=== PATIENT | male | born 1945 | race Caucasian/White ===

== ENCOUNTER 2016-05-05 09:30 | Outpatient (CLI) | payer MEDICARE | END 2016-05-05 09:31 | disposition home or self-care (01) | DX: I48.2 Chronic atrial fibrillation (principal); Z95.2 Presence of prosthetic heart valve ==

== ENCOUNTER 2016-06-01 09:11 | Outpatient (CLI) | payer MEDICARE | END 2016-06-01 09:12 | disposition home or self-care (01) | DX: I48.2 Chronic atrial fibrillation (principal); Z95.2 Presence of prosthetic heart valve ==

== ENCOUNTER 2016-06-10 09:30 | Outpatient (CLI) | payer MEDICARE | END 2016-06-10 09:31 | disposition home or self-care (01) | DX: I48.2 Chronic atrial fibrillation (principal); Z95.2 Presence of prosthetic heart valve ==

== ENCOUNTER 2016-07-02 13:55 | Outpatient (CLI) | payer MEDICARE | END 2016-07-02 13:56 | disposition home or self-care (01) | DX: I48.2 Chronic atrial fibrillation (principal); Z95.2 Presence of prosthetic heart valve ==

== ENCOUNTER 2016-08-03 09:00 | Outpatient (CLI) | payer MEDICARE | END 2016-08-03 09:01 | disposition home or self-care (01) | DX: I48.2 Chronic atrial fibrillation (principal); Z95.2 Presence of prosthetic heart valve ==

== ENCOUNTER 2016-08-31 09:10 | Outpatient (CLI) | payer MEDICARE | END 2016-08-31 09:11 | disposition home or self-care (01) | DX: I48.2 Chronic atrial fibrillation (principal); Z95.2 Presence of prosthetic heart valve ==

== ENCOUNTER 2016-09-08 08:36 | Outpatient (CLI) | payer MEDICARE | END 2016-09-08 08:37 | disposition home or self-care (01) | DX: I48.2 Chronic atrial fibrillation (principal); Z95.2 Presence of prosthetic heart valve ==

== ENCOUNTER 2016-09-22 08:54 | Outpatient (CLI) | payer MEDICARE | END 2016-09-22 08:55 | disposition home or self-care (01) | LOC: LAB.F 08:54 | PROVIDERS: ATTEND Family Medicine | DX: I48.2 Chronic atrial fibrillation (principal); Z95.2 Presence of prosthetic heart valve | CPT/HCPCS: 85610 ==

== ENCOUNTER 2016-09-29 08:38 | Outpatient (CLI) | payer MEDICARE | END 2016-09-29 08:39 | disposition home or self-care (01) | LOC: LAB.F 08:38 | PROVIDERS: ATTEND Family Medicine | DX: I48.2 Chronic atrial fibrillation (principal); Z95.2 Presence of prosthetic heart valve | CPT/HCPCS: 85610 ==

== ENCOUNTER 2016-10-12 08:31 | Outpatient (CLI) | payer MEDICARE | END 2016-10-12 08:32 | disposition home or self-care (01) | LOC: LAB.F 08:31 | PROVIDERS: ATTEND Family Medicine | DX: I48.2 Chronic atrial fibrillation (principal); Z95.2 Presence of prosthetic heart valve | CPT/HCPCS: 85610 ==

== ENCOUNTER 2016-10-26 09:00 | Outpatient (CLI) | payer MEDICARE | END 2016-10-26 09:01 | disposition home or self-care (01) | LOC: LAB.F 09:00 | PROVIDERS: ATTEND Family Medicine | DX: I48.2 Chronic atrial fibrillation (principal); Z95.2 Presence of prosthetic heart valve | CPT/HCPCS: 85610 ==

== ENCOUNTER 2016-11-04 08:56 | Outpatient (CLI) | payer MEDICARE | END 2016-11-04 08:57 | disposition home or self-care (01) | LOC: LAB.F 08:56 | PROVIDERS: ATTEND Family Medicine | DX: I48.2 Chronic atrial fibrillation (principal); Z95.2 Presence of prosthetic heart valve | CPT/HCPCS: 85610 ==

== ENCOUNTER 2016-11-16 09:01 | Outpatient (CLI) | payer MEDICARE | END 2016-11-16 09:02 | disposition home or self-care (01) | LOC: LAB.F 09:01 | PROVIDERS: ATTEND Family Medicine | DX: I48.2 Chronic atrial fibrillation (principal); Z95.2 Presence of prosthetic heart valve | CPT/HCPCS: 85610 ==

== ENCOUNTER 2016-11-18 18:18 | Inpatient (IN) | payer MEDICARE ==
--- NOTE | 2016-11-18 19:00 | ED Physician Documentation ---
PD HPI CHEST PAIN - Stated complaint Stated Complaint: CHEST PX - Chief complaint Chief Complaint: Cardiac - History obtained from History obtained from: Patient - History of Present Illness Timing - onset: Other (71-year-old gentleman with history of atrial fibrillation , anticoagulated, and history of mitral valve repair presents with 2 issues, he notes that A little over a month ago his metoprolol was increased because at an office visit his heart rate was about 110. He went from 100 mg twice daily to 150 mg twice daily. Over the last few days he has noted that his heart rate has been low on his home monitor, as low as 40 but not lower. He has been fatigued with it. He also has had episodic epigastric pain that is nonradiating. This is been going on for the last few days. It happens intermittently, it is nonexertional and does not seem to be related to eating. When he has it he is mildly short of breath but denies nausea or sweats.) Review of Systems Ten Systems: 10 systems reviewed and negative Constitutional: reports: Sweats. denies: Fever, Chills Nose: denies: Rhinorrhea / runny nose, Congestion Cardiac: denies: Chest pain / pressure, Palpitations, Pedal edema, Calf pain Respiratory: denies: Hemoptysis, Wheezing PD PAST MEDICAL HISTORY - Past Medical History Cardiovascular: Hypertension, Atrial fibrillation, Valve disorder - Past Surgical History Past Surgical History: Yes Cardiovascular: Valve replacement - Present Medications Home Medications: Ambulatory Orders Medication Instructions Recorded Confirmed Atenolol 100 mg PO BID 03/06/13 05/13/14 Lisinopril 10 mg PO DAILY 03/06/13 05/13/14 diltiaZEM CD [Cardizem Cd] 180 mg PO BID 03/06/13 05/13/14 Warfarin [Coumadin] 5 mg PO DAILY 05/13/14 05/13/14 - Allergies Allergies/Adverse Reactions: Allergies Allergy/AdvReac Type Severity Reaction Status Date / Time No Known Drug Allergies Allergy Verified 03/06/13 11:13 - Social History Does the pt smoke?: No Smoking Status: Never smoker Does the pt drink ETOH?: No Does the pt have substance abuse?: No - Immunizations Immunizations are current?: Yes - POLST Patient has POLST: Yes PD ED PE NORMAL - Vitals Vital signs reviewed: Yes - General General: Alert and oriented X 3, No acute distress - HEENT HEENT: PERRL, EOMI, Pharynx benign - Neck Neck: Supple, no meningeal sign, No bony TTP - Cardiac Cardiac: No murmur, Other (Bradycardic) - Respiratory Respiratory: No respiratory distress, Clear bilaterally - Abdomen Abdomen: Normal bowel sounds, Soft, Other (Very mild epigastric and right upper quadrant tenderness) - Derm Derm: Normal color, Warm and dry - Extremities Extremities: No edema, No calf tenderness / cord - Neuro Neuro: Alert and oriented X 3, Normal speech - Psych Psych: Normal mood, Normal affect Results - Vitals Vitals: Vital Signs - 24 hr 11/18/16 11/18/16 11/18/16 18:27 19:24 20:02 Temperature 36.0 C L Heart Rate 44 L 43 L 44 L Respiratory 16 18 18 Rate Blood Pressure 156/96 H 132/86 H 110/88 H O2 Saturation 95 93 97 11/18/16 11/18/16 11/18/16 20:30 21:59 23:31 Temperature Heart Rate 44 L 47 L 45 L Respiratory 20 17 17 Rate Blood Pressure 127/63 169/88 H 155/89 H O2 Saturation 94 93 93 Oxygen O2 Source Room air - EKG (time done) 1840 Rhythm: Sinus bradycardia [place]: Normal Intervals: Normal SD QRS: LVH Ischemia: No: ST elevation c/w ischemia Computer interpretation: Agree with computer - Labs Labs: Laboratory Tests 11/18/16 11/18/16 11/18/16 19:04 19:04 19:04 WBC 5.8 RBC 4.61 L Hgb 14.8 Hct 43.6 MCV 94.7 H MCH 32.0 H MCHC 33.8 RDW 13.7 Plt Count 101 L MPV 10.6 Neut # 3.3 Lymph # 1.7 Sampson # 0.7 Eos # 0.1 Baso # 0.0 Absolute Nucleated RBC 0.00 Nucleated RBCs 0.1 Manual Slide Review Indicated WBC Morphology 1+ REACTIVE LYMPHS Platelet Estimate DECREASED (<130,000) Platelet Morphology 1+ LARGE PLATELETS RBC Morph Micro Appear NORMAL APPEARANCE PT INR Sodium 140 Potassium 4.4 Chloride 106 Carbon Dioxide 28 Anion Gap 6.0 BUN 19 Creatinine 0.8 Estimated GFR (MDRD) 95 Glucose 98 Calcium 8.9 Magnesium 2.0 Total Bilirubin 1.1 H AST 28 ALT 31 Alkaline Phosphatase 56 Troponin I < 0.04 Total Protein 6.9 Albumin 4.0 Globulin 2.9 Albumin/Globulin Ratio 1.4 Lipase 21 L 11/18/16 21:15 WBC RBC Hgb Hct MCV MCH MCHC RDW Plt Count MPV Neut # Lymph # Sampson # Eos # Baso # Absolute Nucleated RBC Nucleated RBCs Manual Slide Review WBC Morphology Platelet Estimate Platelet Morphology RBC Morph Micro Appear PT 29.1 H INR 2.6 H Sodium Potassium Chloride Carbon Dioxide Anion Gap BUN Creatinine Estimated GFR (MDRD) Glucose Calcium Magnesium Total Bilirubin AST ALT Alkaline Phosphatase Troponin I Total Protein Albumin Globulin Albumin/Globulin Ratio Lipase - Rads (name of study) RUQ sono Radiology: Prelim report reviewed (Thickened gallbladder wall measuring 4-5 mm with edema and pericholecystic fluid, no gallstones are seen, mild perihepatic ascites.) PD MEDICAL DECISION MAKING - ED course ED course: 71-year-old gentleman with multiple medical problems including A. fib on warfarin presents with 2 chief complaints, one is bradycardia likely due to recent increase in metoprolol dosing. His heart rates were around 45. He also has some epigastric pain and mild right upper quadrant tenderness, ultrasound as shown. Spoke with Dr. Pandya, the on-call surgeon here who would be ok taking him to surgery but given the complexity of the case the pt preferred xfer to [facility] where his picture booker (Marcos) is. However after further disucssion, pt wanted to stay here. Dr Pandya was updated and Dr Lilly consulted for admit. Departure - Departure Disposition: [facility] DC/Xfer Clinical Impression: Anticoagulant long-term use, Cholecystitis, Bradycardia Chest pain Qualifiers: Chest pain type: unspecified Qualified Code(s): R07.9 - Chest pain, unspecified Condition: Stable
[2016-11-18 19:20] LABS: BASOPHILS % (AUTO) 0.7 %; EOSINOPHILS # (AUTO) 0.1 10^3/uL (0.0-0.7); EOSINOPHILS % (AUTO) 2.2 %; HCT - HEMATOCRIT 43.6 % (42.0-52.0); HGB - HEMOGLOBIN 14.8 g/dL (14.0-18.0); LYMPHOCYTES # (AUTO) 1.7 10^3/uL (1.5-3.5); LYMPHOCYTES % (AUTO) 29.2 %; MEAN CORPUSCULAR HGB CONC 33.8 g/dL (32.0-36.0); MEAN CORPUSCULAR VOLUME 94.7 fL (80.0-94.0); MEAN PLATELET VOLUME 10.6 fL (7.4-11.4); MONOCYTES # (AUTO) 0.7 10^3/uL (0.0-1.0); MONOCYTES % (AUTO) 11.5 %; NEUTROPHILS # (AUTO) 3.3 10^3/uL (1.5-6.6); NEUTROPHILS % (AUTO) 56.4 %; NUCLEATED RED BLOOD CELLS AUTO 0.1 /100WBC; RED BLOOD COUNT 4.61 10^6/uL (4.70-6.10); RED CELL DISTRIBUTION WIDTH 13.7 % (12.0-15.0); UNCORRECTED WHITE BLOOD COUNT 5.8 x10^3/uL; WHITE BLOOD COUNT 5.8 x10^3/uL (4.8-10.8)
[2016-11-18 19:23] LABS: ALBUMIN/GLOBULIN RATIO 1.4 (1.0-2.2); BILIRUBIN,TOTAL 1.1 mg/dL (0.2-1.0); CALCIUM 8.9 mg/dL (8.5-10.3); CREATININE 0.8 mg/dL (0.6-1.2); POTASSIUM 4.4 mmol/L (3.5-5.0); TOTAL PROTEIN 6.9 g/dL (6.7-8.2)
[2016-11-18 19:55] LABS: PLATELET ESTIMATE, MANUAL DECREASED (<130,000) (NORMAL); WBC MORPHOLOGY (MULTIPLE) 1+ REACTIVE LYMPHS (NORMAL)
--- NOTE | 2016-11-18 21:01 | Ultrasound Report ---
EXAM: ABDOMEN ULTRASOUND LIMITED, RUQ EXAM DATE: 11/18/2016 08:22 PM. CLINICAL HISTORY: Epigastric pain, evaluate right upper quadrant. COMPARISON: None. TECHNIQUE: Real-time scanning was performed with static images obtained. FINDINGS: Liver: Normal in size and echotexture. Length 15.7 cm. Main portal vein flow: Hepatopetal. Mild perih epatic free fluid. Gallbladder: Thickened gallbladder wall measuring 4-5 mm. Anterior gallbladder wall appears thickened and edematous. Pericholecystic fluid. Complex pericholecystic fluid is possible. No gallstones are s een. Negative sonographic Anne's sign. Suboptimal visualization due to overlying bowel at the neck region Biliary System: Common duct measures 3 mm. No intrahepatic or extrahepatic ductal dilatation. Other: Right kidney measures 10.5 cm. No hydronephrosis. Visualized portions of the pancreas appear unremarkable. IMPRESSION: 1. Thickened gallbladder wall measuring 4-5 mm. Anterior gallbladder wall appears thickened and edema tous. Pericholecystic fluid. Complex pericholecystic fluid is possible. Acute acalculous cholecystiti s is possible in the appropriate clinical setting. No gallstones are seen. Negative sonographic Sb y's sign. Gallbladder wall thickening can also be seen with liver disease or fluid overload. 2. Mild perihepatic ascites. [facility] Referring Provider Line: [phone] SITE ID: [id number]
[2016-11-18] MEDS ORDERED: AMPICILLIN/SULBACTAM 3 GM in SODIUM CHLORIDE 0.9% MINIBAG 100 ML IV STA (21:23)
[2016-11-18 21:46] LABS: INR 2.6 (0.8-1.2); PT - PROTHROMBIN TIME 29.1 secs (9.9-12.6)
[2016-11-18] MEDS ORDERED: ONDANSETRON 4 MG/2 ML VIAL IVP PRN (22:40)
[2016-11-18] MEDS ORDERED: SODIUM CHLORIDE FLUSH 0.9% 10 ML SYRINGE IVP PRN (22:40)
[2016-11-18] MEDS ORDERED: MORPHINE 2 MG/ML SYRINGE IVP PRN (22:40)
[2016-11-18] MEDS ORDERED: PROCHLORPERAZINE 10 MG/2 ML VIAL IVP PRN (22:40)
[2016-11-18] MEDS ORDERED: oxyCODONE 5 MG TABLET PO PRN (22:40)
[2016-11-18] MEDS ORDERED: ACETAMINOPHEN 325 MG TABLET PO PRN (22:40)
[2016-11-18] MEDS ORDERED: PIPERACILLIN/TAZOBACTAM 3.375 GM in SODIUM CHLORIDE 0.9% MINIBAG 100 ML IV SCH (23:00)
[2016-11-18] MEDS ORDERED: SODIUM CHLORIDE 0.9% 1,000 ML IV SCH (23:00)
[2016-11-19] MEDS ORDERED: PHYTONADIONE INJ (ADULT) 10 MG in SODIUM CHLORIDE 0.9% 50 ML IV ONE (00:34)
--- NOTE | 2016-11-19 01:20 | HISTORY & PHYSICAL EXAMINATION ---
Chief Complaint - Chief Complaint Chief Complaint: abdominal pain History of Present Illness - Admitted From Admitted From:: emergency department - History Obtained From Records Reviewed: yes History obtained from: patient Exam Limitations: none - History of Present Illness HPI Comment/Other: Patient is a 71-year-old gentleman with a past medical history significant for atrial flutter on Coumadin status post ablation, hypertension, aortic valve repair in 2003 and osteoarthritis who presented to the emergency department with a chief complaint of abdominal pain. He states he double pain started 2 days ago and has been intermittent. The patient states that the pain is located in the epigastric region it is not associated with any nausea or vomiting. The patient denies having had any fevers or diarrhea. The patient states that it is nonradiating and resolves without any intervention. The patient does not believe is related to meals. The patient states that he has never had this type of pain before. He states he was concerned that this may be chest pain and that he may have been having heart attack. The patient also states that he has been feeling weak and tired over the last few days. He states he was checking his blood pressure and pulse the last 2 days and noticed that his pulse is been low but his blood pressures been normal. He states that today his pulse was only 40. The patient states that he saw his pulp drier in August and at that time his heart rate was 110 therefore his pulp drier adjusted his metoprolol dose from 50-100 twice a day. The patient states that he saw his pulp drier again just 2 days ago and at that time he underwent an echocardiogram for which he did not receive the results yet. The patient denies any shortness of air, orthopnea, PND , increased lower extremity swelling, and he denies any chest pain. The patient also denies any headache, blurred vision, runny nose, sore throat, cough, fevers , chills, joint pains, muscle aches, recent unintentional weight loss or focal neurologic deficits. On presentation to the emergency department the patient was afebrile, bradycardic with heart rate in the 40s slightly hypertensive but otherwise he was not in any respiratory distress. The patient's lab work revealed a INR of 2.6, platelet count of 101, and a bilirubin of 1.1. Otherwise remainder of the patient's lab work was within normal limits including a negative troponin and a normal CBC. The patient remained afebrile in the emergency department. The patient's EKG showed sinus bradycardia. The patient underwent an abdominal ultrasound which showed thickened gallbladder wall measuring 4-5 mm. Anterior gallbladder wall appeared thickened and edematous. Pericholecystic fluid was present. Complex pericholecystic fluid with possible. Acute acalculous cholecystitis appeared probable in the correct clinical setting. There was no gallstone seen. There was also mild perihepatic ascites. The emergency room physician spoke with the surgeon on-call Dr. Pandya who recommended that the patient be admitted to the medical service with IV antibiotics. He also asked that we reversed the patient's INR and have him ready for surgery to remove his gallbladder on 11/20/2016. Review of Systems - Other Findings Other Findings: A comprehensive review of systems was performed the pertinent positives and negatives are stated above in the HPI and the remainder of the review of systems is negative. History - Past Medical History Cardiovascular: reports: Hypertension, Atrial fibrillation, Valve disorder MRSA Hx?: No Other Past Medical History: 1. Atrial flutter status post ablation currently in sinus rhythm on Coumadin. 2. Hypertension. 3. Mitral valve repair in 2003. 4. Osteoarthritis - Past Surgical History Cardiovascular: reports: Other (ablation, mitral valve repair) - Family & Social History Family History Comment/Other: The patient's mother had her gallbladder removed. The patient states there is otherwise no family history of diabetes, coronary artery disease, cancer or stroke. Living arrangement: At home Living Situation: With spouse/s.o. Social History Notes: The patient states that he lives in [place] with his domestic partner. He states that he does not have any children. He states that he did have 3 older siblings who have . The patient denies any history of tobacco abuse. He does state that he drinks a martini before dinner every day. He denies any illicit drug use. - Substance History Use: Uses substance without health or social issues: NONE Abuse: Recurrent use of substance despite neg consequences: NONE Dependence: Experiences withdrawal or developed tolerances: NONE - POLST Patient has POLST: Yes POLST Status: Full Code Meds/Allgy - Home Medications Home Medications: Ambulatory Orders Medication Instructions Recorded Confirmed Atenolol 100 mg PO BID 03/06/13 05/13/14 Lisinopril 10 mg PO DAILY 03/06/13 05/13/14 diltiaZEM CD [Cardizem Cd] 180 mg PO BID 03/06/13 05/13/14 Warfarin [Coumadin] 5 mg PO DAILY 05/13/14 05/13/14 - Allergies Allergies/Adverse Reactions: Allergies Allergy/AdvReac Type Severity Reaction Status Date / Time No Known Drug Allergies Allergy Verified 03/06/13 11:13 Exam - Vital Signs Reviewed Vital Signs: Yes Vital Signs: Vital Signs x48h Pulse Resp BP Pulse Ox 11/18/16 23:31 45 L 17 155/89 H 93 - Physical Exam General Appearance: positive: No acute distress, Alert Eyes Bilateral: positive: Normal inspection, PERRL, EOMI, No lid inflammation, Conjunctivae nml, No scleral icterus ENT: positive: ENT inspection nml, Pharynx nml, Dry mucous membranes. negative : Purulent nasal drainage, Pharyngeal erythema, Oral lesions Neck: positive: Nml inspection, Thyroid nml, No JVD, Trachea midline. negative : Thyromegaly, Lymphadenopathy (R), Lymphadenopathy (L), Carotid bruit, Tracheal deviation Respiratory: positive: Chest non-tender, No respiratory distress, Breath sounds nml. negative: Wheezes, Rales, Rhonchi Cardiovascular: positive: No murmur, No gallop, Bradycardia Peripheral Pulses: positive: 2+ Abdomen: positive: No organomegaly, Nml bowel sounds, Tenderness (mild epigastric tenderness, negative Anne's), Other (abdominal distention). negative: Guarding, Rebound Back: positive: Nml inspection. negative: CVA tenderness (R), CVA tenderness (L ) Skin: positive: Color nml, No rash, Warm. negative: Cyanosis, Pallor Extremities: positive: Non-tender, Full ROM, Nml appearance, No pedal edema Neurologic/Psychiatric: positive: Oriented x3, CN's nml (2-12), Motor nml, Sensation nml, Mood/affect nml Conclusion/Plan - Problem List (1) Acute acalculous cholecystitis Conclusion/Plan: The patient presented with 2 days of intermittent abdominal pain. No nausea and no patient of the pain and according to the patient no relationship with eating. Patient had a negative Anne sign but did have some epigastric tenderness on examination. Patient had no leukocytosis and no fever. Patient's abdominal ultrasound didn't show gallbladder wall thickening suspicious for a calculus cholecystitis. Surgery was consult from the emergency department and recommended admission of the patient and starting IV antibiotics, reversing his INR and keeping him n.p.o. after midnight on 11/19/2016 for possible cholecystectomy on 11/20/2016. According to the revised cardiac risk index the patient has a 0.4% risk of major cardiac event during surgery Plan: Treat medically with IV Zosyn Surgery consult Reversed patient's INR with vitamin K N.p.o. after midnight on 11/19/2016 clear liquid still than IV fluids HIDA scan Request echo from pulp drier (2) Bradycardia Conclusion/Plan: Patient presented with bradycardia in the 40s. The patient had his metoprolol dose adjusted in August of 2016 from 50 mg to 100 mg. Recently the patient has been feeling increasing fatigue and generalized weakness. The patient was concerned therefore he been checking his blood pressure the last 2 days and noticed that he was having bradycardia. The patient's bradycardia is likely secondary to medication side effect. Plan: Patient was placed on telemetry We will hold the patient's metoprolol until his heart rate is about 60 We will adjust his metoprolol dose and decrease it back to 50 mg twice a day once he is ready to restart metoprolol. (3) Atrial flutter Conclusion/Plan: The patient has had a history of atrial flutter status post ablation currently appears to be in sinus rhythm on EKG. The patient is on rate control agent with metoprolol. Patient presents with bradycardia and metoprolol will be held Patient is on Coumadin with INR of 2.6 Plan Hold patient's metoprolol until heart rate is improved Telemetry monitoring Give vitamin K and hold Coumadin for possible cholecystectomy Monitor INR Qualifiers: Atrial flutter type: unspecified Qualified Code(s): I48.92 - Unspecified atrial flutter (4) Hypertension Conclusion/Plan: Patient is on metoprolol and lisinopril for hypertension We will hold metoprolol secondary to bradycardia. We will continue the patient's home dose of lisinopril Monitor blood pressure Qualifiers: Hypertension type: essential hypertension Qualified Code(s): I10 - Essential (primary) hypertension - Lab Results Lab results reviewed: Yes Fish Bones: 11/18/16 19:04 11/18/16 19:04 - Diagnostic Imaging Results Diagnostic Imaging Results: positive: Final report reviewed Diagnostic Imaging Results Comments: Abdominal ultrasound Impression: 1. Thickened gallbladder wall measuring 4-5 mm. Anterior gallbladder wall appears thickened and edematous. Pericholecystic fluid. The complex pericholecystic fluid as possible. Acute acalculous cholecystitis is possible in the appropriate clinical setting. No gallstones are seen. Negative sonographic Anne's sign. Gallbladder wall thickening can also be seen with liver disease or fluid overload. 2. mild perihepatic ascites. - EKG Results EKG Interpreted Independently: Yes EKG Findings: Sinus bradycardia Issues/Core Measures - Anticipated LOS Anticipated Stay Length: 2 or more midnights - DVT/VTE - Prophylaxis VTE/DVT Device ordered at admit?: Yes
[2016-11-19] MEDS: SODIUM CHLORIDE 0.9% 1,000 ML IV SCH ×2 (02:47→11:24)
[2016-11-19] MEDS ORDERED: SODIUM CHLORIDE FLUSH 0.9% 10 ML SYRINGE IVP SCH ×2 (06:00)
[2016-11-19] MEDS: PIPERACILLIN/TAZOBACTAM 3.375 GM in SODIUM CHLORIDE 0.9% MINIBAG 100 ML IV SCH ×2 (06:16→11:24)
[2016-11-19 06:20] LABS: BASOPHILS % (AUTO) 0.5 %; EOSINOPHILS # (AUTO) 0.1 10^3/uL (0.0-0.7); EOSINOPHILS % (AUTO) 2.4 %; HCT - HEMATOCRIT 41.7 % (42.0-52.0); HGB - HEMOGLOBIN 14.3 g/dL (14.0-18.0); LYMPHOCYTES # (AUTO) 1.5 10^3/uL (1.5-3.5); LYMPHOCYTES % (AUTO) 27.3 %; MEAN CORPUSCULAR HEMOGLOBIN 32.2 pg (27.0-31.0); MEAN CORPUSCULAR HGB CONC 34.2 g/dL (32.0-36.0); MEAN PLATELET VOLUME 10.4 fL (7.4-11.4); MONOCYTES # (AUTO) 0.6 10^3/uL (0.0-1.0); MONOCYTES % (AUTO) 11.7 %; NEUTROPHILS # (AUTO) 3.2 10^3/uL (1.5-6.6); NEUTROPHILS % (AUTO) 58.1 %; RED BLOOD COUNT 4.43 10^6/uL (4.70-6.10); UNCORRECTED WHITE BLOOD COUNT 5.4 x10^3/uL; WHITE BLOOD COUNT 5.4 x10^3/uL (4.8-10.8)
[2016-11-19 06:27] LABS: INR 2.1 (0.8-1.2); PT - PROTHROMBIN TIME 23.8 secs (9.9-12.6)
[2016-11-19 06:33] LABS: ALBUMIN/GLOBULIN RATIO 1.4 (1.0-2.2); BILIRUBIN,TOTAL 1.7 mg/dL (0.2-1.0); CALCIUM 8.5 mg/dL (8.5-10.3); CREATININE 0.8 mg/dL (0.6-1.2); MAGNESIUM 1.8 mg/dL (1.7-2.8); PHOSPHORUS 2.8 mg/dL (2.5-4.6); POTASSIUM 3.7 mmol/L (3.5-5.0); TOTAL PROTEIN 6.1 g/dL (6.7-8.2)
[2016-11-19] MEDS ORDERED: PANTOPRAZOLE 40 MG TABLET PO SCH ×2 (07:00)
[2016-11-19] MEDS ORDERED: POLYETHYLENE GLYCOL 3350 17 GM PACKET PO SCH ×2 (09:00)
--- NOTE | 2016-11-19 12:01 | Nuclear Medicine Prelim Report ---
Exam: NM Hepatobiliary HIDA w/o Rx IMPRESSION: 1. Patent cystic duct. 2. Patent common bile duct. 3. Negative for acute cholecystitis. [facility] The call report notification system was initiated by Dr. Osei Dorman at 11:54 hrs on 11/19/16 . The above findings were discussed with Henrique by Dr. Osei Dorman at 11:59 hrs on 11/19/16. SITE ID: [id number]
--- NOTE | 2016-11-19 12:04 | Nuclear Medicine Report ---
EXAM: HEPATOBILIARY SCAN EXAM DATE: 11/19/2016 09:21 AM. CLINICAL HISTORY: Acute Cholecystitis . COMPARISON: Ultrasound 11/18/2016. TECHNIQUE: Following the intravenous administration of 5.5 mCi of Tc99m Mebrofenin, a hepatobiliary s can was done centered on the liver and gallbladder in multiple sequential images and projections. FINDINGS: Normal extraction of tracer from the blood pool indicating normal hepatocellular function. The liver size and shape is grossly within normal limits. Appearance of tracer in the biliary tree as early as 10 minutes, within normal limits. Appearance of tracer in the gallbladder as early as 10 minutes, within normal limits, with good progr ession of filling throughout the remainder of the initial hour. Appearance of tracer in the small bowel as early as 30 minutes, within normal limits. IMPRESSION: 1. Patent cystic duct. 2. Patent common bile duct. 3. Negative for acute cholecystitis. [facility] The call report notification system was initiated by Dr. Osei Dorman at 11:54 hrs on 11/19/16 . The above findings were discussed with Henrique by Dr. Osei Dorman at 11:59 hrs on 11/19/16. Referring Provider Line: [phone] SITE ID: [id number]
--- NOTE | 2016-11-19 13:37 | Discharge Plan ---
Discharge Plan Disposition: Home, Self Care Condition: Good Prescriptions: Pantoprazole [Protonix] 40 mg PO QDAC #30 tablet Diet: Regular Activity Restrictions: No Restrictions Shower Restrictions: No Driving Restrictions: No Weight Bearing: Full Weight Additional Instructions or Follow Up instructions: resume usual activity and diet. If problem recurs return here or see your PCP Thank you, Dr. Henrique Frye Smoking: If you smoke, Please STOP! Call for help. Follow-up with: Iftikhar Luu MD [Primary Care Provider] - 2 Weeks
[2016-11-19 13:43] VITALS: BP 115/68
--- NOTE | 2016-11-20 07:18 | DISCHARGE SUMMARY ---
DATE OF ADMISSION: 11/18/2016 DATE OF DISCHARGE: 11/19/2016 PRIMARY CARE PROVIDER: Iftikhar Luu MD. ADMISSION DIAGNOSES: 1. Acute acalculous cholecystitis. 2. Bradycardia. 3. Atrial flutter. 4. Hypertension. DISCHARGE DIAGNOSES: 1. Acute acalculous cholecystitis ruled out abdominal pain undetermined etiology, suspect gastric myke ology. 2. Bradycardia, asymptomatic. 3. Atrial flutter controlled, status post ablation. CONSULTATIONS: 1. Dr. Pandya was initially asked to consult after a normal HIDA scan. He was told he does not need to do a formal consult. SPECIAL PROCEDURES: The patient had a HIDA scan which was normal. The patient had an abdominal ultras ound and the impression was: 1. Thickened gallbladder wall measuring 4 to 5 mm. Anterior gallbladder wall appears thickened and ed ematous. Pericholecystic fluid. Complex pericholecystic fluid is possible. Acute acalculous cholecyst itis is possible in appropriate clinical setting. No gallstones are seen. Negative sonographic Anne 's sign. Gallbladder wall thickening also seen in liver disease or with fluid overload. 2. Mild perihepatic ascites. The patient's hospital course and management, history of presentation and hospital emergency room sg luation and hospitalist plan are all well described in the History and Physical, see copy of same. Th e patient had no pain from when he after he was in the emergency department and received medication u ntil the time of discharge. The patient had the studies noted above and it was determined the patient neither had the history or findings for gallbladder disease, though it was not completely ruled out. The patient was discharged home. He was seen and examined on the day of discharge. His discharge process: ALLERGIES: NO KNOWN ALLERGIES. MEDICATIONS AT HOME: 1. Protonix daily, new prescription #30. 2. Atenolol 100 mg b.i.d. 3. Warfarin 5 mg a day. 4. Diltiazem 180 mg b.i.d. 5. Lisinopril 20 mg a day. He was given a prescription and told that his symptomatology seemed most consistent with a gastric et iology, e.g. gastritis or gastrointestinal reflux disease. If the patient has problems in the future he is to either see his PCP or come to the emergency depart ment. The patient states he had an echocardiogram 2 days prior to his admission to this hospital as a n outpatient and the almond pan finisher told him "it was fine." The patient's copy of report showed he had an EF of 50-55%, no description of valve except for the tricuspid on report. The patient was examined on day of discharge. Time spent on discharge activity less than 30 minutes. It was a same day discharge. JOB #: [id number] EXT JOB #:[id number]
== END 2016-11-19 14:03 | disposition home or self-care (01) | DRG 445 ==
LOC: ED 18:18 → MS 22:40
PROVIDERS: ADMIT Internal Medicine; ATTEND Internal Medicine
DX: K81.9 Cholecystitis, unspecified (principal); K81.0 Acute cholecystitis; I48.91 Unspecified atrial fibrillation; I48.92 Unspecified atrial flutter; K29.70 Gastritis, unspecified, without bleeding; K21.9 Gastro-esophageal reflux disease without esophagitis; R00.1 Bradycardia, unspecified; I10 Essential (primary) hypertension; M19.90 Unspecified osteoarthritis, unspecified site; Z95.2 Presence of prosthetic heart valve; Z79.01 Long term (current) use of anticoagulants; Z79.899 Other long term (current) drug therapy; Z98.890 Other specified postprocedural states
CPT/HCPCS: 36415; 76705; 78226; 80053; 83605; 83690; 83735; 84100; 84484; 85025; 85610; 93005; 96374; 99284; 99285

== ENCOUNTER 2016-12-09 09:28 | Outpatient (CLI) | payer MEDICARE | END 2016-12-09 09:29 | disposition home or self-care (01) | LOC: LAB.F 09:28 | PROVIDERS: ATTEND Family Medicine | DX: I48.2 Chronic atrial fibrillation (principal); Z95.2 Presence of prosthetic heart valve | CPT/HCPCS: 85610 ==

== ENCOUNTER 2016-12-21 11:09 | Outpatient (CLI) | payer MEDICARE | END 2016-12-21 11:10 | disposition home or self-care (01) | LOC: LAB.F 11:09 | PROVIDERS: ATTEND Family Medicine | DX: I48.2 Chronic atrial fibrillation (principal); Z95.2 Presence of prosthetic heart valve | CPT/HCPCS: 85610 ==

== ENCOUNTER 2016-12-29 09:27 | Outpatient (CLI) | payer MEDICARE | END 2016-12-29 09:28 | disposition home or self-care (01) | LOC: LAB.F 09:27 | PROVIDERS: ATTEND Family Medicine | DX: I48.2 Chronic atrial fibrillation (principal) | CPT/HCPCS: 85610 ==

== ENCOUNTER 2017-01-11 08:54 | Outpatient (CLI) | payer MEDICARE | END 2017-01-11 08:55 | disposition home or self-care (01) | LOC: LAB.F 08:54 | PROVIDERS: ATTEND Family Medicine | DX: I48.2 Chronic atrial fibrillation (principal); Z95.2 Presence of prosthetic heart valve | CPT/HCPCS: 85610 ==

== ENCOUNTER 2017-01-26 08:55 | Outpatient (CLI) | payer MEDICARE | END 2017-01-26 08:56 | disposition home or self-care (01) | LOC: LAB.F 08:55 | PROVIDERS: ATTEND Family Medicine | DX: I48.2 Chronic atrial fibrillation (principal); Z95.2 Presence of prosthetic heart valve | CPT/HCPCS: 85610 ==

== ENCOUNTER 2017-02-22 13:49 | Outpatient (CLI) | payer MEDICARE | END 2017-02-22 13:50 | disposition home or self-care (01) | LOC: LAB.F 13:49 | PROVIDERS: ATTEND Family Medicine | DX: I48.2 Chronic atrial fibrillation (principal); Z95.2 Presence of prosthetic heart valve | CPT/HCPCS: 85610 ==

== ENCOUNTER 2017-04-06 14:14 | Outpatient (CLI) | payer MEDICARE | END 2017-04-06 14:15 | disposition home or self-care (01) | LOC: LAB.F 14:14 | PROVIDERS: ATTEND Family Medicine | DX: I48.2 Chronic atrial fibrillation (principal); Z95.2 Presence of prosthetic heart valve | CPT/HCPCS: 85610 ==

== ENCOUNTER 2017-04-15 14:05 | Outpatient (CLI) | payer MEDICARE | END 2017-04-15 14:06 | disposition home or self-care (01) | LOC: LAB.F 14:05 | PROVIDERS: ATTEND Family Medicine | DX: I48.2 Chronic atrial fibrillation (principal); Z95.2 Presence of prosthetic heart valve | CPT/HCPCS: 85610 ==

== ENCOUNTER 2017-04-20 09:55 | Outpatient (CLI) | payer MEDICARE | END 2017-04-20 09:56 | disposition home or self-care (01) | LOC: LAB.F 09:55 | PROVIDERS: ATTEND Family Medicine | DX: I48.2 Chronic atrial fibrillation (principal); Z95.2 Presence of prosthetic heart valve | CPT/HCPCS: 85610 ==

== ENCOUNTER 2017-04-27 16:03 | Outpatient (CLI) | payer MEDICARE | END 2017-04-27 16:04 | disposition home or self-care (01) | LOC: LAB.F 16:03 | PROVIDERS: ATTEND Family Medicine | DX: I48.2 Chronic atrial fibrillation (principal); Z95.2 Presence of prosthetic heart valve | CPT/HCPCS: 85610 ==

== ENCOUNTER 2017-05-04 09:38 | Outpatient (CLI) | payer MEDICARE | END 2017-05-04 09:39 | disposition home or self-care (01) | LOC: LAB.F 09:38 | PROVIDERS: ATTEND Family Medicine | DX: I48.2 Chronic atrial fibrillation (principal); Z95.2 Presence of prosthetic heart valve | CPT/HCPCS: 85610 ==

== ENCOUNTER 2017-05-25 09:14 | Outpatient (CLI) | payer MEDICARE | END 2017-05-25 09:15 | disposition home or self-care (01) | LOC: LAB.F 09:14 | PROVIDERS: ATTEND Family Medicine | DX: I48.2 Chronic atrial fibrillation (principal); Z95.2 Presence of prosthetic heart valve | CPT/HCPCS: 85610 ==

== ENCOUNTER 2017-06-01 08:00 | Outpatient (CLI) | payer MEDICARE | END 2017-06-01 08:01 | disposition home or self-care (01) | LOC: LAB.F 08:00 | PROVIDERS: ATTEND Family Medicine | DX: I48.2 Chronic atrial fibrillation (principal); Z95.2 Presence of prosthetic heart valve | CPT/HCPCS: 85610 ==

== ENCOUNTER 2017-06-08 08:00 | Outpatient (CLI) | payer MEDICARE | END 2017-06-08 08:01 | disposition home or self-care (01) | LOC: LAB.F 08:00 | PROVIDERS: ATTEND Family Medicine | DX: I48.2 Chronic atrial fibrillation (principal); Z95.2 Presence of prosthetic heart valve | CPT/HCPCS: 85610 ==

== ENCOUNTER 2017-06-23 09:27 | Outpatient (CLI) | payer MEDICARE | END 2017-06-23 09:28 | disposition home or self-care (01) | LOC: LAB.F 09:27 | PROVIDERS: ATTEND Family Medicine | DX: I48.2 Chronic atrial fibrillation (principal); Z95.2 Presence of prosthetic heart valve | CPT/HCPCS: 85610 ==

== ENCOUNTER 2017-06-29 09:45 | Outpatient (CLI) | payer MEDICARE | END 2017-06-29 09:46 | disposition home or self-care (01) | LOC: LAB.F 09:45 | PROVIDERS: ATTEND Family Medicine | DX: I48.2 Chronic atrial fibrillation (principal); Z95.2 Presence of prosthetic heart valve | CPT/HCPCS: 85610 ==

== ENCOUNTER 2017-07-06 10:45 | Outpatient (CLI) | payer MEDICARE | END 2017-07-06 10:46 | disposition home or self-care (01) | LOC: LAB.F 10:45 | PROVIDERS: ATTEND Family Medicine | DX: I48.2 Chronic atrial fibrillation (principal) | CPT/HCPCS: 85610 ==

== ENCOUNTER 2017-07-22 11:48 | Outpatient (CLI) | payer MEDICARE | END 2017-07-22 11:49 | disposition home or self-care (01) | LOC: LAB.F 11:48 | PROVIDERS: ATTEND Family Medicine | DX: I48.2 Chronic atrial fibrillation (principal); Z95.2 Presence of prosthetic heart valve | CPT/HCPCS: 85610 ==

== ENCOUNTER 2017-08-05 12:14 | Outpatient (CLI) | payer MEDICARE | END 2017-08-05 12:15 | disposition home or self-care (01) | LOC: LAB.F 12:14 | PROVIDERS: ATTEND Family Medicine | DX: I48.2 Chronic atrial fibrillation (principal); Z95.2 Presence of prosthetic heart valve | CPT/HCPCS: 85610 ==

== ENCOUNTER 2017-08-13 09:23 | Outpatient (CLI) | payer MEDICARE | END 2017-08-13 09:24 | disposition home or self-care (01) | LOC: LAB.F 09:23 | PROVIDERS: ATTEND Family Medicine | DX: I48.2 Chronic atrial fibrillation (principal); Z95.2 Presence of prosthetic heart valve | CPT/HCPCS: 85610 ==

== ENCOUNTER 2017-08-20 09:26 | Outpatient (CLI) | payer MEDICARE | END 2017-08-20 09:27 | disposition home or self-care (01) | LOC: LAB.F 09:26 | PROVIDERS: ATTEND Family Medicine | DX: I48.2 Chronic atrial fibrillation (principal); Z95.2 Presence of prosthetic heart valve | CPT/HCPCS: 85610 ==

== ENCOUNTER 2017-09-06 14:19 | Outpatient (CLI) | payer MEDICARE | END 2017-09-06 14:20 | disposition home or self-care (01) | LOC: LAB.F 14:19 | PROVIDERS: ATTEND Family Medicine | DX: I48.2 Chronic atrial fibrillation (principal); Z95.2 Presence of prosthetic heart valve | CPT/HCPCS: 85610 ==

== ENCOUNTER 2017-09-16 14:26 | Outpatient (CLI) | payer MEDICARE | END 2017-09-16 14:27 | disposition home or self-care (01) | LOC: LAB.F 14:26 | PROVIDERS: ATTEND Family Medicine | DX: I48.2 Chronic atrial fibrillation (principal); Z95.2 Presence of prosthetic heart valve | CPT/HCPCS: 85610 ==

== ENCOUNTER 2017-10-11 10:46 | Outpatient (CLI) | payer MEDICARE | END 2017-10-11 10:47 | disposition home or self-care (01) | LOC: LAB.F 10:46 | PROVIDERS: ATTEND Family Medicine | DX: I48.2 Chronic atrial fibrillation (principal); Z95.2 Presence of prosthetic heart valve | CPT/HCPCS: 85610 ==

== ENCOUNTER 2017-11-19 08:46 | Outpatient (CLI) | payer MEDICARE, BC | END 2017-11-19 08:47 | disposition home or self-care (01) | LOC: LAB.F 08:46 | PROVIDERS: ATTEND Family Medicine | DX: I48.2 Chronic atrial fibrillation (principal); Z95.2 Presence of prosthetic heart valve | CPT/HCPCS: 85610 ==

== ENCOUNTER 2017-12-27 14:41 | Outpatient (CLI) | payer MEDICARE, BC | END 2017-12-27 14:42 | disposition home or self-care (01) | LOC: LAB.F 14:41 | PROVIDERS: ATTEND Family Medicine | DX: I48.2 Chronic atrial fibrillation (principal); Z95.2 Presence of prosthetic heart valve | CPT/HCPCS: 85610 ==

== ENCOUNTER 2018-01-24 08:00 | Outpatient (CLI) | payer MEDICARE, BC | END 2018-01-24 08:01 | disposition home or self-care (01) | LOC: LAB.F 08:00 | PROVIDERS: ATTEND Family Medicine | DX: I48.2 Chronic atrial fibrillation (principal); Z95.2 Presence of prosthetic heart valve | CPT/HCPCS: 85610 ==

== ENCOUNTER 2018-02-03 10:29 | Outpatient (CLI) | payer MEDICARE, BC ==
--- NOTE | 2018-02-03 15:49 | Ultrasound Report ---
Reason: BL CAROTID BRUITS,PERSISTENT ATRIAL FIBRILLATION Procedure Date: 02/03/2018 Accession Number: [id number] / [id number] Procedure: US - Carotid Doppler Complete CPT Code: FULL RESULT: EXAM: BILATERAL CAROTID AND VERTEBRAL ARTERY DUPLEX DOPPLER ULTRASOUND: EXAM DATE: 02/03/2018 11:40 AM CLINICAL HISTORY: Bilateral carotid bruits, persistent atrial fibrillation. COMPARISON: None. TECHNIQUE: Grayscale imaging, color Doppler, and duplex spectral Doppler were used to evaluate the carotid and vertebral arteries bilaterally. Static images were obtained. FINDINGS: Focal echogenic less than 25% lumen atherosclerotic plaque is identified in the left common carotid artery, left carotid bulb and proximal ICA. No hemodynamically significant plaque is identified in the right or left common or internal carotid arteries. Normal antegrade flow is present in bilateral vertebral arteries. VELOCITIES (cm/sec): Right CCA mid: PSV 89 cm/sec CCA dist: PSV 86 cm/sec ICA prox: PSV 59 cm/sec, EDV 18 cm/sec ICA mid: PSV 67 cm/sec, EDV 19 cm/sec ICA dist: PSV 91 cm/sec, EDV 28 cm/sec ECA: PSV 64 cm/sec Vert: PSV 36 cm/sec ICA/CCA: 1.02 Left CCA mid: PSV 82 cm/sec CCA dist: PSV 59 cm/sec ICA prox: PSV 97 cm/sec, EDV 30 cm/sec ICA mid: PSV 63 cm/sec, EDV 19 cm/sec ICA dist: PSV 125 cm/sec, EDV 30 cm/sec ECA: PSV 80 cm/sec Vert: PSV 43 cm/sec ICA/CCA: 1.50 ICA diameter stenosis: Right: <50% by velocity and <70% by NASCET criteria. Left: <50% by velocity and <70% by NASCET criteria. IMPRESSION: 1. No hemodynamically significant bilateral carotid artery plaquing. 2. In the right carotid artery there are no elevated carotid artery velocities to suggest hemodynamically significant stenosis. 3. In the left carotid artery there are no elevated carotid artery velocities to suggest hemodynamically significant stenosis. 4. Normal antegrade flow is present in bilateral vertebral arteries. General Recommendations: Stenosis =50% ICA - Follow-up ultrasound 6-12 months Stenosis <50% ICA - High Risk Patient with plaque - Follow-up ultrasound 1-2 years Normal Study but High Risk Patient - Follow-up ultrasound 3-5 years Management recommendations and diagnostic criteria are based on current IAC endorsed standards in Carotid Artery Stenosis: Grayscale and Doppler Ultrasound Diagnosis. Validated velocity measurements with angiographic measurements and velocity criteria are extrapolated from diameter data as defined by the Society of Radiologists in Ultrasound Consensus Conference Radiology 2003; 229;340-346. RADIA
== END 2018-02-03 10:30 | disposition home or self-care (01) ==
LOC: DI 10:29
PROVIDERS: ATTEND Nurse Practitioner Family
DX: I48.1 Persistent atrial fibrillation (principal); R09.89 Other specified symptoms and signs involving the circulatory and respiratory systems; R51 Headache; R01.1 Cardiac murmur, unspecified
CPT/HCPCS: 93880

== ENCOUNTER 2018-02-23 09:45 | Outpatient (CLI) | payer MEDICARE, BC | END 2018-02-23 09:46 | disposition home or self-care (01) | LOC: LAB.F 09:45 | PROVIDERS: ATTEND Family Medicine | DX: I48.2 Chronic atrial fibrillation (principal); Z95.2 Presence of prosthetic heart valve | CPT/HCPCS: 85610 ==

== ENCOUNTER 2018-04-11 11:42 | Outpatient (CLI) | payer MEDICARE, BC | END 2018-04-11 11:43 | disposition home or self-care (01) | LOC: LAB.F 11:42 | PROVIDERS: ATTEND Family Medicine | DX: I48.2 Chronic atrial fibrillation (principal); Z95.2 Presence of prosthetic heart valve | CPT/HCPCS: 85610 ==

== ENCOUNTER 2018-05-12 11:46 | Outpatient (CLI) | payer BC, MEDICARE | END 2018-05-12 23:59 | disposition home or self-care (01) | LOC: LAB.F 11:46 | PROVIDERS: ATTEND Family Medicine | DX: I48.2 Chronic atrial fibrillation (principal); Z95.2 Presence of prosthetic heart valve | CPT/HCPCS: 85610 ==

== ENCOUNTER 2018-06-24 14:53 | Outpatient (CLI) | payer MEDICARE | END 2018-06-24 14:54 | disposition home or self-care (01) | LOC: LAB.F 14:53 | PROVIDERS: ATTEND Family Medicine | DX: I48.2 Chronic atrial fibrillation (principal); Z95.2 Presence of prosthetic heart valve | CPT/HCPCS: 85610 ==

== ENCOUNTER 2018-07-26 08:00 | Outpatient (CLI) | payer MEDICARE | END 2018-07-26 23:59 | disposition home or self-care (01) | LOC: LAB.F 08:00 | PROVIDERS: ATTEND Family Medicine | DX: I48.2 Chronic atrial fibrillation (principal); Z95.2 Presence of prosthetic heart valve | CPT/HCPCS: 85610 ==

== ENCOUNTER 2018-08-24 14:07 | Outpatient (CLI) | payer MEDICARE | END 2018-08-24 14:08 | disposition home or self-care (01) | LOC: LAB.F 14:07 | PROVIDERS: ATTEND Family Medicine | DX: I48.2 Chronic atrial fibrillation (principal); Z95.2 Presence of prosthetic heart valve | CPT/HCPCS: 85610 ==

== ENCOUNTER 2018-08-31 11:30 | Outpatient (CLI) | payer MEDICARE ==
[2018-08-31 17:42] LABS: BASOPHILS % (AUTO) 0.4 %; EOSINOPHILS # (AUTO) 0.2 10^3/uL (0.0-0.7); EOSINOPHILS % (AUTO) 3.7 %; HGB - HEMOGLOBIN 14.3 g/dL (14.0-18.0); LYMPHOCYTES # (AUTO) 1.9 10^3/uL (1.5-3.5); LYMPHOCYTES % (AUTO) 33.7 %; MEAN CORPUSCULAR HEMOGLOBIN 31.4 pg (27.0-31.0); MEAN CORPUSCULAR HGB CONC 33.5 g/dL (32.0-36.0); MEAN CORPUSCULAR VOLUME 93.8 fL (80.0-94.0); MONOCYTES # (AUTO) 0.6 10^3/uL (0.0-1.0); MONOCYTES % (AUTO) 10.7 %; NEUTROPHILS # (AUTO) 2.9 10^3/uL (1.5-6.6); NEUTROPHILS % (AUTO) 51.5 %; PLT - PLATELET COUNT 130 10^3/uL (130-450); RED BLOOD COUNT 4.56 10^6/uL (4.70-6.10); RED CELL DISTRIBUTION WIDTH 13.9 % (12.0-15.0); WHITE BLOOD COUNT 5.6 x10^3/uL (4.8-10.8)
[2018-08-31 17:48] LABS: CALCIUM 9.1 mg/dL (8.5-10.3); CREATININE 0.8 mg/dL (0.6-1.2); PT - PROTHROMBIN TIME 22.5 secs (9.9-12.6)
[2018-08-31 18:00] LABS: PLATELET ESTIMATE, MANUAL NORMAL (130-450,000) (NORMAL); PLATELET MORPHOLOGY RARE GIANT PLATELETS (NORMAL); RBC MORPHOLOGY (MULTIPLE) NORMAL APPEARANCE (NORMAL)
== END 2018-08-31 11:31 | disposition home or self-care (01) ==
LOC: LAB.F 11:30
PROVIDERS: ATTEND Internal Medicine
DX: I47.1 Supraventricular tachycardia (principal)
CPT/HCPCS: 36415; 80048; 85025; 85610

== ENCOUNTER 2018-10-06 11:04 | Outpatient (CLI) | payer MEDICARE, BC | END 2018-10-06 11:05 | disposition home or self-care (01) | LOC: RT 11:04 | PROVIDERS: ATTEND Internal Medicine | DX: I49.1 Atrial premature depolarization (principal); Z79.899 Other long term (current) drug therapy | CPT/HCPCS: 93005 ==

== ENCOUNTER 2018-10-18 15:11 | Outpatient (CLI) | payer MEDICARE, BC | END 2018-10-18 15:12 | disposition home or self-care (01) | LOC: LAB.F 15:11 | PROVIDERS: ATTEND Family Medicine | DX: I48.2 Chronic atrial fibrillation (principal); Z95.2 Presence of prosthetic heart valve | CPT/HCPCS: 85610 ==

== ENCOUNTER 2018-11-02 13:55 | Outpatient (CLI) | payer MEDICARE, BC | END 2018-11-02 13:56 | disposition home or self-care (01) | LOC: LAB.S 13:55 | PROVIDERS: ATTEND Family Medicine | DX: I48.2 Chronic atrial fibrillation (principal); Z95.2 Presence of prosthetic heart valve | CPT/HCPCS: 85610 ==

== ENCOUNTER 2018-12-02 | Outpatient (CLI) | payer MEDICARE, BC | END 2018-12-02 10:42 | disposition home or self-care (01) ==

== ENCOUNTER 2018-12-30 14:19 | Outpatient (CLI) | payer MEDICARE, BC | END 2018-12-30 14:20 | disposition home or self-care (01) | LOC: LAB.S 14:19 | PROVIDERS: ATTEND Family Medicine | DX: I48.2 Chronic atrial fibrillation (principal); Z95.2 Presence of prosthetic heart valve | CPT/HCPCS: 85610 ==

== ENCOUNTER 2019-01-31 15:23 | Outpatient (CLI) | payer BC, MEDICARE | END 2019-01-31 15:24 | disposition home or self-care (01) | LOC: LAB.S 15:23 | PROVIDERS: ATTEND Family Medicine | DX: I48.20 Chronic atrial fibrillation, unspecified (principal); Z95.2 Presence of prosthetic heart valve | CPT/HCPCS: 85610 ==

== ENCOUNTER 2019-02-14 11:49 | Outpatient (CLI) | payer MEDICARE, BC | END 2019-02-14 11:50 | disposition home or self-care (01) | LOC: LAB.S 11:49 | PROVIDERS: ATTEND Family Medicine | DX: I48.20 Chronic atrial fibrillation, unspecified (principal); Z95.2 Presence of prosthetic heart valve | CPT/HCPCS: 85610 ==

== ENCOUNTER 2019-02-27 14:11 | Outpatient (CLI) | payer MEDICARE, BC | END 2019-02-27 14:12 | disposition home or self-care (01) | LOC: LAB.S 14:11 | PROVIDERS: ATTEND Family Medicine | DX: I48.20 Chronic atrial fibrillation, unspecified (principal); Z95.2 Presence of prosthetic heart valve | CPT/HCPCS: 85610 ==

== ENCOUNTER 2019-04-27 13:40 | Outpatient (CLI) | payer MEDICARE, BC | END 2019-04-27 13:41 | disposition home or self-care (01) | LOC: LAB.S 13:40 | PROVIDERS: ATTEND Family Medicine | DX: I48.20 Chronic atrial fibrillation, unspecified (principal); Z95.2 Presence of prosthetic heart valve | CPT/HCPCS: 85610 ==

== ENCOUNTER 2019-05-10 15:14 | Outpatient (CLI) | payer MEDICARE, BC | END 2019-05-10 15:15 | disposition home or self-care (01) | LOC: LAB.S 15:14 | PROVIDERS: ATTEND Family Medicine | DX: Z95.2 Presence of prosthetic heart valve (principal); I48.20 Chronic atrial fibrillation, unspecified | CPT/HCPCS: 85610 ==

== ENCOUNTER 2019-06-14 15:17 | Outpatient (CLI) | payer BC, MEDICARE | END 2019-06-14 15:18 | disposition home or self-care (01) | LOC: LAB.S 15:17 | PROVIDERS: ATTEND Family Medicine | DX: I48.20 Chronic atrial fibrillation, unspecified (principal); Z95.2 Presence of prosthetic heart valve | CPT/HCPCS: 85610 ==

== ENCOUNTER 2019-07-06 13:59 | Outpatient (CLI) | payer MEDICARE | END 2019-07-06 14:00 | disposition home or self-care (01) | LOC: LAB.S 13:59 | PROVIDERS: ATTEND Family Medicine | DX: I48.20 Chronic atrial fibrillation, unspecified (principal); Z95.2 Presence of prosthetic heart valve | CPT/HCPCS: 85610 ==

== ENCOUNTER 2019-07-17 08:00 | Outpatient (CLI) | payer MEDICARE | END 2019-07-17 23:59 | disposition home or self-care (01) | LOC: LAB.S 08:00 | PROVIDERS: ATTEND Family Medicine | DX: I48.20 Chronic atrial fibrillation, unspecified (principal); Z95.2 Presence of prosthetic heart valve | CPT/HCPCS: 85610 ==

== ENCOUNTER 2019-09-09 16:05 | Emergency (ER) | payer MEDICARE ==
[2019-09-09 16:46] LABS: BASOPHILS % (AUTO) 0.3 %; EOSINOPHILS # (AUTO) 0.3 10^3/uL (0.0-0.7); EOSINOPHILS % (AUTO) 3.8 %; HGB - HEMOGLOBIN 14.3 g/dL (14.0-18.0); LYMPHOCYTES # (AUTO) 2.1 10^3/uL (1.5-3.5); LYMPHOCYTES % (AUTO) 27.6 %; MEAN CORPUSCULAR HEMOGLOBIN 31.7 pg (27.0-31.0); MEAN CORPUSCULAR HGB CONC 34.3 g/dL (32.0-36.0); MEAN CORPUSCULAR VOLUME 92.5 fL (80.0-94.0); MEAN PLATELET VOLUME 11.7 fL (7.4-11.4); MONOCYTES # (AUTO) 1.1 10^3/uL (0.0-1.0); MONOCYTES % (AUTO) 14.3 %; NEUTROPHILS % (AUTO) 53.6 %; PLT - PLATELET COUNT 149 10^3/uL (130-450); RED BLOOD COUNT 4.51 10^6/uL (4.70-6.10); RED CELL DISTRIBUTION WIDTH 14.8 % (12.0-15.0); WHITE BLOOD COUNT 7.5 x10^3/uL (4.8-10.8)
[2019-09-09 16:57] LABS: INR 1.9 (0.8-1.2); PT - PROTHROMBIN TIME 20.4 secs (9.9-12.6)
--- NOTE | 2019-09-09 17:00 | ED Physician Documentation ---
PD HPI DYSPNEA - Stated complaint Stated Complaint: ABNORMAL EKG RESULTS - REFERRAL - Chief complaint Chief Complaint: Cardiac - History obtained from History obtained from: Patient (74-year-old gentleman with about a 1-year-old pacemaker for A. fib flutter went to an urgent care today for what he describes as wheezing and a little bit of mucus in his throat which has since resolved. Work-up there evidently demonstrated an abnormally EEG and a chest x-ray questionable for CHF and a BNP of 1186 so he was discharged but they reviewed all this while he was on the [facility] and told him to come to the ER here. He feels fine now, no pedal edema. No history of CHF.) Review of Systems Ten Systems: 10 systems reviewed and negative Constitutional: denies: Fever, Chills Throat: denies: Dental pain / toothache, Sore throat Cardiac: denies: Chest pain / pressure, Palpitations Respiratory: denies: Dyspnea, Cough PD PAST MEDICAL HISTORY - Past Medical History Cardiovascular: Hypertension, Atrial flutter, Atrial fibrillation, Valve disorder Respiratory: Pneumonia Endocrine/Autoimmune: None GI: Cholelithiasis : Kidney stones HEENT: None Psych: None Musculoskeletal: None Derm: Other - Past Surgical History Past Surgical History: Yes Cardiovascular: Other - Present Medications Home Medications: Ambulatory Orders Medication Instructions Recorded Confirmed Atenolol 100 mg PO BID 03/06/13 05/13/14 [id number] CD [Cardizem Cd] 180 mg PO BID 03/06/13 05/13/14 Warfarin [Coumadin] 5 mg PO DAILY 05/13/14 05/13/14 Pantoprazole [Protonix] 40 mg PO QDAC #30 tablet 11/19/16 lisinopriL [Lisinopril] 20 mg PO DAILY 11/19/16 11/19/16 - Allergies Allergies/Adverse Reactions: Allergies Allergy/AdvReac Type Severity Reaction Status Date / Time No Known Drug Allergies Allergy Verified 09/09/19 16:09 - Social History Does the pt smoke?: No Smoking Status: Never smoker Does the pt drink ETOH?: No Does the pt have substance abuse?: No - Immunizations Immunizations are current?: Yes - POLST Patient has POLST: Yes POLST Status: Full Code PD ED PE NORMAL - Vitals Vital signs reviewed: Yes - General General: Alert and oriented X 3, No acute distress - HEENT HEENT: PERRL, EOMI - Neck Neck: Supple, no meningeal sign, No bony TTP - Cardiac Cardiac: Other (Irregular, irregular) - Respiratory Respiratory: No respiratory distress, Clear bilaterally - Abdomen Abdomen: Non tender - Extremities Extremities: No edema, No calf tenderness / cord - Neuro Neuro: Alert and oriented X 3, Normal speech Results - Vitals Vitals: Vital Signs - 24 hr 09/09/19 09/09/19 16:09 16:43 Temperature 36.4 C L Heart Rate 75 92 Respiratory 16 17 Rate Blood Pressure 143/88 H 127/103 H O2 Saturation 96 96 Oxygen O2 Source Room air - EKG (time done) 1618 Rate: Rate (enter#) (100; He is having a few [place] atrial fibrillation beats, narrow complex, for the most part he is paced though, some of his pacer beats are fairly fast.) - Labs Labs: Laboratory Tests 09/09/19 09/09/19 09/09/19 16:40 16:40 16:40 WBC 7.5 RBC 4.51 L Hgb 14.3 Hct 41.7 L MCV 92.5 MCH 31.7 H MCHC 34.3 RDW 14.8 Plt Count 149 MPV 11.7 H Neut # (Auto) 4.0 Lymph # (Auto) 2.1 White # (Auto) 1.1 H Eos # (Auto) 0.3 Baso # (Auto) 0.0 Absolute Nucleated RBC 0.00 Nucleated RBC % 0.0 PT 20.4 H INR 1.9 H Sodium 140 Potassium 3.8 Chloride 109 Carbon Dioxide 22 Anion Gap 9.0 BUN 22 H Creatinine 1.0 Estimated GFR (MDRD) 73 L Glucose 120 H Calcium 9.2 Total Bilirubin 0.9 AST 21 ALT 21 Alkaline Phosphatase 71 Troponin I High Sens B-Natriuretic Peptide Total Protein 7.0 Albumin 3.9 Globulin 3.1 Albumin/Globulin Ratio 1.3 Lipase 31 09/09/19 09/09/19 16:40 16:40 WBC RBC Hgb Hct MCV MCH MCHC RDW Plt Count MPV Neut # (Auto) Lymph # (Auto) White # (Auto) Eos # (Auto) Baso # (Auto) Absolute Nucleated RBC Nucleated RBC % PT INR Sodium Potassium Chloride Carbon Dioxide Anion Gap BUN Creatinine Estimated GFR (MDRD) Glucose Calcium Total Bilirubin AST ALT Alkaline Phosphatase Troponin I High Sens 6.1 B-Natriuretic Peptide 1363 H Total Protein Albumin Globulin Albumin/Globulin Ratio Lipase PD MEDICAL DECISION MAKING - ED course ED course: 74-year-old gentleman presents now asymptomatic but with some wheezing this morning and an EKG that is a little concerning for a pacer malfunction. The this was discussed by phone with his sidehand, Dr. Garcia who reviewed his records and felt that the patient was probably a mild CHF. He requested that we give the patient 40 mg of Lasix IV here and he will call the prescription into his pharmacy as well as a potassium supplement and his nurse will reach out to him to arrange for follow-up BMP and echo. Departure - Departure Disposition: Home, Self Care Clinical Impression: Anticoagulant long-term use Congestive heart failure Qualifiers: Heart failure type: unspecified Heart failure chronicity: chronic Qualified Code(s): I50.9 - Heart failure, unspecified Condition: Good Record reviewed to determine appropriate education?: Yes Instructions: ED CHF General Comments: Continue current medications, Dr. Garcia is going to call you in a prescription for a diuretic and a potassium supplement to your usual pharmacy. He will also have his nurse reach out to you to arrange for follow-up repeat blood work and an echocardiogram. Return if you worsen.
[2019-09-09 17:18] LABS: ALBUMIN 3.9 g/dL (3.2-5.5); ALBUMIN/GLOBULIN RATIO 1.3 (1.0-2.2); BILIRUBIN,TOTAL 0.9 mg/dL (0.2-1.0); CALCIUM 9.2 mg/dL (8.5-10.3)
[2019-09-09] MEDS ORDERED: FUROSEMIDE 20 MG TABLET PO STA (17:33)
[2019-09-09] MEDS ORDERED: FUROSEMIDE 40 MG/4 ML VIAL IVP STA (17:36)
[2019-09-09 17:53] VITALS: BP 135/88
== END 2019-09-09 17:53 | disposition home or self-care (01) ==
LOC: ED 16:05
DX: I11.0 Hypertensive heart disease with heart failure (principal); I50.9 Heart failure, unspecified
CPT/HCPCS: 36415; 80053; 83690; 83880; 84484; 85025; 85610; 93005; 96374; 99283

== ENCOUNTER 2019-11-02 14:07 | Outpatient (CLI) | payer MEDICARE | END 2019-11-02 14:08 | disposition home or self-care (01) | LOC: LAB.S 14:07 | PROVIDERS: ATTEND Family Medicine | DX: I48.20 Chronic atrial fibrillation, unspecified (principal); Z95.2 Presence of prosthetic heart valve | CPT/HCPCS: 85610 ==

== ENCOUNTER 2020-01-25 15:07 | Outpatient (CLI) | payer MEDICARE | END 2020-01-25 15:08 | disposition home or self-care (01) | LOC: LAB.S 15:07 | PROVIDERS: ATTEND Family Medicine | DX: I48.20 Chronic atrial fibrillation, unspecified (principal); Z95.2 Presence of prosthetic heart valve | CPT/HCPCS: 85610 ==

== ENCOUNTER 2020-03-05 11:34 | Outpatient (CLI) | payer MEDICARE | END 2020-03-05 11:35 | disposition home or self-care (01) | LOC: LAB.S 11:34 | PROVIDERS: ATTEND Family Medicine | DX: I48.20 Chronic atrial fibrillation, unspecified (principal); Z95.2 Presence of prosthetic heart valve | CPT/HCPCS: 85610 ==

== ENCOUNTER 2020-04-02 14:15 | Outpatient (CLI) | payer MEDICARE | END 2020-04-02 14:16 | disposition home or self-care (01) | LOC: LAB.S 14:15 | PROVIDERS: ATTEND Family Medicine | DX: I48.20 Chronic atrial fibrillation, unspecified (principal); Z95.2 Presence of prosthetic heart valve | CPT/HCPCS: 85610 ==

== ENCOUNTER 2021-09-10 08:24 | Outpatient (CLI) | payer MEDICARE ==
--- NOTE | 2021-09-10 08:54 | XRAY Report ---
PROCEDURE: Hip w/Pelvis 2-3V RT INDICATIONS: RIGHT HIP PAIN TECHNIQUE: AP pelvis with lateral view(s) of the right hip(s). COMPARISON: None. FINDINGS: BONES/JOINTS: No acute, displaced fracture. Mild bilateral periarticular hip osteophytosis. No widening of the pubic symphysis. The sacroiliac joints are symmetric. The femoral heads are normal ly seated within the acetabulum. SOFT TISSUES: No focal abnormality. IMPRESSION: 1.No acute osseous abnormality.. Reviewed by: Rodrick Light MD on 09/10/2021 8:52 AM PDT Approved by: Rodrick Light MD on 09/10/2021 8:52 AM PDT Station ID: [id number]
== END 2021-09-10 08:25 | disposition home or self-care (01) ==
LOC: DI.S 08:24
PROVIDERS: ATTEND Nurse Practitioner Family
DX: M25.551 Pain in right hip (principal)

== ENCOUNTER 2022-04-03 08:00 | Outpatient (CLI) | payer MEDICARE ==
--- NOTE | 2022-04-03 19:27 | XRAY Report ---
PROCEDURE: Chest 2 View X-Ray INDICATIONS: LEFT LOWER LOBE PNEUMONIA TECHNIQUE: 2 views of the chest were acquired. COMPARISON: 03/06/2013. FINDINGS: Surgical changes and devices: Median sternotomy changes and left chest wall cardiac pacing device. Lungs and pleura: Lungs clear. No significant pleural abnormality. Mediastinum: Mediastinal contours are normal. Heart size is normal. Bones and chest wall: No suspicious bony abnormalities. Soft tissues appear unremarkable. IMPRESSION: No acute finding. Reviewed by: Herbie Gonsales MD on 04/03/2022 7:26 PM PST Approved by: Herbie Gonsales MD on 04/03/2022 7:26 PM PST Station ID: [id number]
== END 2022-04-03 23:59 | disposition home or self-care (01) ==
LOC: DI.S 08:00
PROVIDERS: ATTEND Emergency Medicine
DX: J18.1 Lobar pneumonia, unspecified organism (principal)

== ENCOUNTER 2022-04-23 16:06 | Outpatient (CLI) | payer MEDICARE | END 2022-04-23 16:07 | disposition short-term general hospital (02) | LOC: EMS 16:06 | DX: I48.91 Unspecified atrial fibrillation (principal); Z95.810 Presence of automatic (implantable) cardiac defibrillator | CPT/HCPCS: A0425; A0427 ==

== ENCOUNTER 2023-06-07 08:24 | Outpatient (CLI) | payer MEDICARE | END 2023-06-07 08:25 | disposition home or self-care (01) | LOC: LAB.S 08:24 | PROVIDERS: ATTEND Internal Medicine | DX: I48.91 Unspecified atrial fibrillation (principal); Z95.0 Presence of cardiac pacemaker | CPT/HCPCS: 36416; 85610 ==

== ENCOUNTER 2023-06-28 09:13 | Outpatient (CLI) | payer MEDICARE | END 2023-06-28 09:14 | disposition home or self-care (01) | LOC: LAB.S 09:13 | PROVIDERS: ATTEND Internal Medicine | DX: I48.91 Unspecified atrial fibrillation (principal); Z95.0 Presence of cardiac pacemaker | CPT/HCPCS: 36416; 85610 ==

== ENCOUNTER 2023-07-16 10:23 | Outpatient (CLI) | payer MEDICARE | END 2023-07-16 10:24 | disposition home or self-care (01) | LOC: LAB.S 10:23 | PROVIDERS: ATTEND Internal Medicine | DX: I48.91 Unspecified atrial fibrillation (principal); Z95.0 Presence of cardiac pacemaker | CPT/HCPCS: 36416; 85610 ==

== ENCOUNTER 2023-08-10 09:38 | Outpatient (CLI) | payer MEDICARE | END 2023-08-10 09:39 | disposition home or self-care (01) | LOC: LAB.S 09:38 | PROVIDERS: ATTEND Internal Medicine | DX: I48.91 Unspecified atrial fibrillation (principal); Z95.0 Presence of cardiac pacemaker | CPT/HCPCS: 36416; 85610 ==

== ENCOUNTER 2023-09-08 13:36 | Outpatient (CLI) | payer MEDICARE | END 2023-09-08 13:37 | disposition home or self-care (01) | LOC: LAB.S 13:36 | PROVIDERS: ATTEND Internal Medicine | DX: I48.91 Unspecified atrial fibrillation (principal); Z95.0 Presence of cardiac pacemaker | CPT/HCPCS: 36416; 85610 ==

== ENCOUNTER 2023-12-13 08:55 | Outpatient (CLI) | payer MEDICARE, OTHER | END 2023-12-13 08:56 | disposition home or self-care (01) | LOC: LAB.S 08:55 | PROVIDERS: ATTEND Internal Medicine | DX: I48.91 Unspecified atrial fibrillation (principal); Z95.0 Presence of cardiac pacemaker | CPT/HCPCS: 36416; 85610 ==

== ENCOUNTER 2023-12-30 08:28 | Day surgery (SDC) | payer MEDICARE, OTHER ==
[2023-12-30] MEDS: LACTATED RINGERS 1,000 ML IV ONE (08:38)
[2023-12-30] MEDS: PROPARACAINE 0.5% OPHTH DROPS 15 ML ONE (08:55)
[2023-12-30] MEDS: KETOROLAC TROMETHAMINE 0.5% OPHTH DROPS 5 ML ONE (08:55)
[2023-12-30] MEDS: CYCLOPENTOLATE 1% OPHTH DROPS 2 ML ONE (09:00)
[2023-12-30] MEDS: PHENYLEPHRINE 2.5% OPHTH 2 ML DROPS ONE (09:00)
--- NOTE | 2023-12-30 09:20 | ANESTHESIA ---
Pre-Anesthesia VS, & Labs - Diagnosis L senile combined cataract - Procedure L cataract extraction with IOL Vital Signs: Temp Pulse Resp BP Pulse Ox O2 Flow Rate 36.1 C L 60 15 121/62 100 12/30/23 09:01 12/30/23 09:01 12/30/23 09:01 12/30/23 09:01 12/30/23 09:01 Height: 5 ft 11 in Weight (kg): 71.4 kg Body Mass Index: 21.9 BMI Classification: Normal - NPO >8 hours - Lab Results Lab results reviewed: Yes Home Medications and Allergies Home Medications: Ambulatory Orders Cholecalciferol (Vitamin D3) [Vitamin D3] 1,250 mcg PO DAILY 12/29/23 Cyanocobalamin (Vitamin B-12) [Vitamin B-12] 1,000 mcg PO DAILY 12/29/23 Metoprolol Succinate 200 mg PO HS 12/29/23 Sacubitril/Valsartan [Entresto 49 mg-51 mg Tablet] 49 mg PO BID 12/29/23 Spironolactone [Aldactone] 25 mg PO DAILY 12/29/23 Warfarin [Coumadin] 1 mg PO DAILY 12/29/23 metFORMIN [Glucophage] 500 mg PO BIDWM 12/29/23 Warfarin [Coumadin] 5 mg PO DAILY 05/13/14 Cholecalciferol (Vitamin D3) [Vitamin D3] 1,250 mcg PO DAILY 12/29/23 Cyanocobalamin (Vitamin B-12) [Vitamin B-12] 1,000 mcg PO DAILY 12/29/23 Metoprolol Succinate 200 mg PO HS 12/29/23 Sacubitril/Valsartan [Entresto 49 mg-51 mg Tablet] 49 mg PO BID 12/29/23 Spironolactone [Aldactone] 25 mg PO DAILY 12/29/23 Warfarin [Coumadin] 1 mg PO DAILY 12/29/23 metFORMIN [Glucophage] 500 mg PO BIDWM 12/29/23 Allergies/Adverse Reactions: Allergies Allergy/AdvReac Type Severity Reaction Status Date / Time No Known Drug Allergies Allergy Verified 12/29/23 16:14 Anes History & Medical History - Anesthetic History Anesthesia Complications: reports: No previous complications Family history of Anesthesia Complications: Denies Family history of Malignant Hyperthermia: Denies - Medical History Cardiovascular: reports: Hypertension, Atrial flutter, Atrial fibrillation, Arrhythmia, Valve disorder Pulmonary: reports: Pneumonia Gastrointestinal: reports: Cholelithiasis Urinary: reports: Kidney stones Musculoskeletal: reports: None Endocrine/Autoimmune: reports: None Blood Disorders: reports: None Skin: reports: Other Smoking Status: Never smoker History of Cancer?: No - Surgical History Cardiothoracic: reports: Valve replacement, Pacemaker, Other Exam General: Alert, Oriented x3, Cooperative Mouth Openin Fingerbreadth Neck Mobility: Normal Mallampati classification: II Thyromental Distance: 4-6 cm Respiratory: Lungs clear, Normal breath sounds, No respiratory distress Cardiovascular: Regular rate (100% Vpaced) Neurological: Normal speech Mental/Cognitive Status: Alert/Oriented X3, Normal for patient Cognitive Status: Within normal limits Plan Anesthesia Type: MAC Consent for Procedure(s) Verified and Reviewed: Yes Code Status: Attempt Resuscitation ASA classification: 3-Severe systemic disease Is this case an emergency?: No
[2023-12-30] MEDS ORDERED: MIDAZOLAM 2 MG/2 ML VIAL ONE (09:54)
[2023-12-30] MEDS ORDERED: TIMOLOL 0.5% OPHTH DROPS ONE (10:05)
[2023-12-30] MEDS ORDERED: BRIMONIDINE 0.2% OPHTH DROPS 5 ML ONE (10:05)
[2023-12-30] MEDS ORDERED: BSS/LIDOCAINE/EPINEPHRINE 1 ML VIAL ONE (10:05)
[2023-12-30] MEDS ORDERED: EPINEPHrine 1 MG/ML AMP ONE (10:05)
[2023-12-30] MEDS ORDERED: TRIAMCIN/MOXIFLOX OPHTHALMIC 0.6 ML VIAL IO ONE (10:05)
[2023-12-30] MEDS: TIMOLOL 0.5% OPHTH DROPS OPTH ONE (10:17)
[2023-12-30] MEDS: BRIMONIDINE 0.2% OPHTH DROPS 5 ML OPTH ONE (10:17)
[2023-12-30] MEDS: EPINEPHrine 1 MG/ML AMP IR ONE (10:17)
[2023-12-30] MEDS: PROPARACAINE 0.5% OPHTH DROPS 15 ML EACHEYE ONE (10:18)
[2023-12-30] MEDS: BSS/LIDOCAINE/EPINEPHRINE 1 ML SYRINGE IO ONE (10:18)
[2023-12-30] MEDS: TRIAMCIN/MOXIFLOX OPHTHALMIC 0.6 ML VIAL IO ONE (10:18)
[2023-12-30] MEDS: VANCOMYCIN OPHTH (TOPICAL) 10 MG/ML SYRINGE TOP ONE (10:18)
[2023-12-30] MEDS: LACTATED RINGERS 800 ML IV ONE (10:42)
[2023-12-30 10:44] VITALS: O2SAT 99
--- NOTE | 2023-12-30 10:48 | OPERATIVE REPORT ---
Operative Report - Other Other Information/Narrative: Date of Surgery: 12/30/23 Preop Dx: Visually significant cataract left eye. This was the first cataract surgery. Postop Dx: Same Procedure: Phacoemulsification with posterior chamber intraocular lens implant left eye Surgeon: Dr. Flako Haywood Anesthesia: Monitored anesthesia care Complications: None Operative Indications: This is a 78-year-old M with progressive vision loss in the left eye due to 3-4+ nuclear sclerotic, 2+ cortical, and vacuolar cataract. Best corrected visual acuity was 20/40 with glare to light perception vision in the left eye. Indications for surgery were: - Overall decrease in vision - Difficulty seeing words on a computer screen - Difficulty reading - Difficulty seeing street signs - Difficulty driving in low light or at night - Difficulty driving at night because of headlights from other vehicles - Difficulty with glare or bright lights in any situation The patient was consented at length concerning the risks and benefits of cataract surgery after which the patient expressed a desire to proceed with surgery. Operative Procedure: The patient was taken into OR#3 and placed under monitored anesthesia care. A surgical time-out was conducted confirming correct patient, correct procedure, and correct surgical site. The patient was given topical a nesthesia and then prepped and draped in the usual sterile fashion. The eye was entered at the 6 and 3 oclock positions. Intracameral Shugarcaine was injected into the anterior chamber followed by a dispersive viscoelastic. A continuous- tear curvilinear capsulorhexis was performed. The nucleus was hydrodissected and phacoemulsified. The cortex was evacuated using automated infusion and aspirat ion. A cohesive viscoelastic was injected into the capsular bag and a 18.5 diopter intraocular lens was inserted into the bag. Infusion and aspiration were used to evacuate the viscoelastic materials from the eye. The wounds were hydrated and the eye inflated to physiologic pressure using balanced salt solution. Approximately 0.25ml of a mixture of triamcinolone and moxifloxacin was injected trans-sclerally into the vitreous in the inferotemporal quadrant using a 30 gauge cannula. An additional 0.55ml of a mixture of triamcinolone and moxifloxacin was injected subconjunctivally in the superior quadrant for infection and inflammation prophylaxis. Wound integrity was checked with Weck- Jessica sponges. The patient was taken from the operating room in good condition and given post-op instructions.
[2023-12-30 10:55] VITALS: BP 122/73
--- NOTE | 2023-12-30 11:29 | ANESTHESIA POST OP EVALUATION ---
Anesthesia Post Eval - Post Anesthesia Eval Vitals: Last Vital Signs Temp 36.3 C L 12/30/23 10:53 Pulse 60 12/30/23 10:53 Resp 16 12/30/23 10:53 BP 122/73 12/30/23 10:53 Pulse Ox 99 12/30/23 10:53 O2 Flow Rate CV Function Including HR & BP: Stable Pain Control: Satisfactory Nausea & Vomiting: Negative Mental Status: Baseline Respiratory Status: Airway Patent Hydration Status: Satisfactory Anesthesia Complications: None
== END 2023-12-30 08:29 | disposition home or self-care (01) ==
LOC: SDS 08:28
PROVIDERS: ATTEND Ophthalmology
DX: H25.812 Combined forms of age-related cataract, left eye (principal); E11.36 Type 2 diabetes mellitus with diabetic cataract; I11.0 Hypertensive heart disease with heart failure; I50.9 Heart failure, unspecified; I48.91 Unspecified atrial fibrillation; Z79.01 Long term (current) use of anticoagulants; Z79.84 Long term (current) use of oral hypoglycemic drugs; Z87.891 Personal history of nicotine dependence
CPT/HCPCS: 66984; A9270; J3490; J7120

== ENCOUNTER 2024-01-17 13:47 | Outpatient (CLI) | payer MEDICARE, OTHER | END 2024-01-17 13:48 | disposition home or self-care (01) | LOC: LAB.S 13:47 | PROVIDERS: ATTEND Internal Medicine | DX: I48.91 Unspecified atrial fibrillation (principal); Z95.0 Presence of cardiac pacemaker | CPT/HCPCS: 36416; 85610 ==

== ENCOUNTER 2024-01-27 06:43 | Day surgery (SDC) | payer MEDICARE, OTHER ==
[2024-01-27] MEDS ORDERED: EPINEPHrine 1 MG/ML AMP ONE (06:56)
[2024-01-27] MEDS ORDERED: TRIAMCIN/MOXIFLOX OPHTHALMIC 0.6 ML VIAL IO ONE (06:56)
[2024-01-27] MEDS ORDERED: BRIMONIDINE 0.2% OPHTH DROPS 5 ML ONE (06:56)
[2024-01-27] MEDS ORDERED: TIMOLOL 0.5% OPHTH DROPS ONE (06:56)
[2024-01-27] MEDS ORDERED: BSS/LIDOCAINE/EPINEPHRINE 1 ML VIAL ONE (06:57)
[2024-01-27] MEDS: PHENYLEPHRINE 2.5% OPHTH 2 ML DROPS ONE (06:59)
[2024-01-27] MEDS: PROPARACAINE 0.5% OPHTH DROPS 15 ML ONE (06:59)
[2024-01-27] MEDS: CYCLOPENTOLATE 1% OPHTH DROPS 2 ML ONE (06:59)
[2024-01-27] MEDS: KETOROLAC TROMETHAMINE 0.5% OPHTH DROPS 5 ML ONE (06:59)
[2024-01-27] MEDS: LACTATED RINGERS 1,000 ML IV ONE ×2 (07:03→07:49)
[2024-01-27] MEDS: BRIMONIDINE 0.2% OPHTH DROPS 5 ML OPTH ONE (07:17)
[2024-01-27] MEDS: BSS/LIDOCAINE/EPINEPHRINE 1 ML SYRINGE IO ONE (07:18)
[2024-01-27] MEDS: EPINEPHrine 1 MG/ML AMP IR ONE (07:18)
[2024-01-27] MEDS: TIMOLOL 0.5% OPHTH DROPS OPTH ONE (07:18)
[2024-01-27] MEDS ORDERED: MIDAZOLAM 2 MG/2 ML VIAL ONE (07:18)
[2024-01-27] MEDS: PROPARACAINE 0.5% OPHTH DROPS 15 ML EACHEYE ONE (07:21)
[2024-01-27] MEDS: VANCOMYCIN OPHTH (TOPICAL) 10 MG/ML SYRINGE TOP ONE (07:21)
[2024-01-27] MEDS: TRIAMCIN/MOXIFLOX OPHTHALMIC 0.6 ML VIAL IO ONE (07:21)
--- NOTE | 2024-01-27 07:29 | ANESTHESIA ---
Pre-Anesthesia VS, & Labs - Diagnosis right senile combined cataract - Procedure right cataract extraction with IOL implant Vital Signs: Temp Pulse Resp BP Pulse Ox O2 Flow Rate 36.4 C L 62 20 108/67 97 01/27/24 07:06 01/27/24 07:06 01/27/24 07:06 01/27/24 07:06 01/27/24 07:06 Height: 5 ft 11 in Weight (kg): 71.7 kg Body Mass Index: 22.0 BMI Classification: Normal - NPO >8 hours - Lab Results Current Lab Results: Laboratory Tests 01/27/24 07:18: POC Whole Bld Glucose 106 H Lab results reviewed: Yes Home Medications and Allergies Warfarin [Coumadin] 5 mg PO DAILY 05/13/14 Cholecalciferol (Vitamin D3) [Vitamin D3] 1,250 mcg PO DAILY 12/29/23 Cyanocobalamin (Vitamin B-12) [Vitamin B-12] 1,000 mcg PO DAILY 12/29/23 Metoprolol Succinate 200 mg PO HS 12/29/23 Sacubitril/Valsartan [Entresto 49 mg-51 mg Tablet] 49 mg PO BID 12/29/23 Spironolactone [Aldactone] 25 mg PO DAILY 12/29/23 Warfarin [Coumadin] 1 mg PO DAILY 12/29/23 metFORMIN [Glucophage] 500 mg PO BIDWM 12/29/23 Allergies/Adverse Reactions: Allergies Allergy/AdvReac Type Severity Reaction Status Date / Time No Known Drug Allergies Allergy Verified 01/27/24 07:21 Anes History & Medical History - Anesthetic History Anesthesia Complications: reports: No previous complications - Medical History Cardiovascular: reports: Hypertension, Atrial flutter, Atrial fibrillation, Arrhythmia, Valve disorder Pulmonary: reports: Pneumonia Gastrointestinal: reports: Cholelithiasis Urinary: reports: Kidney stones Neuro: reports: None Musculoskeletal: reports: None Endocrine/Autoimmune: reports: None Blood Disorders: reports: None Skin: reports: Other Smoking Status: Never smoker Psychosocial: reports: No issues indicated - Surgical History Eyes Ears Nose Throat (EENT): reports: Cataracts Cardiothoracic: reports: Valve replacement, Pacemaker, Other Exam General: Alert, Oriented x3, Cooperative, No acute distress Dental: WNL Mouth Openin Fingerbreadth Neck Mobility: Normal Mallampati classification: II Thyromental Distance: 4-6 cm Mental/Cognitive Status: Alert/Oriented X3, Normal for patient Plan Anesthesia Type: MAC Consent for Procedure(s) Verified and Reviewed: Yes Code Status: Attempt Resuscitation ASA classification: 3-Severe systemic disease Is this case an emergency?: No
--- NOTE | 2024-01-27 07:57 | OPERATIVE REPORT ---
Operative Report - Other Other Information/Narrative: Date of Surgery: 01/27/24 Preop Dx: Visually significant cataract right eye. Cataract surgery was performed in the left eye on . Postop Dx: Same Procedure: Phacoemulsification with posterior chamber intraocular lens implant right eye Surgeon: Dr. Flako Haywood Anesthesia: Monitored anesthesia care Complications: None Operative Indications: This is a 79-year-old M with progressive vision loss in the right eye due to 3+ nuclear sclerotic, trace cortical, and vacuolar cataract. Best corrected visual acuity was 20/40 with glare to light perception vision in the right eye. Indications for surgery were: - Difficulty seeing words on a computer screen - Difficulty reading - Difficulty seeing street signs - Difficulty driving in low light or at night - Difficulty driving at night because of headlights from other vehicles - Difficulty with glare or bright lights in any situation The patient was consented at length concerning the risks and benefits of cataract surgery after which the patient expressed a desire to proceed with surgery. Operative Procedure: The patient was taken into OR#3 and placed under monitored anesthesia care. A surgical time-out was conducted confirming correct patient, correct procedure, and correct surgical site. The patient was given topical anesthesia and then prepped and draped in the usual sterile fashion. The eye was entered at the 6 and 3 oclock positions. Intracameral Shugarcaine was injected into the anterior chamber followed by a dispersive viscoelastic. A continuous-tear curvilinear capsulorhexis was performed. The nucleus was hydrodissected and phacoemulsified. The cortex was evacuated using automated infusion and aspiration. A cohesive viscoelastic was injected into the capsular bag and a 19.5 diopter intraocular lens was inserted into the bag. Infusion and aspiration were used to evacuate the viscoelastic materials from the eye. The wounds were hydrated and the eye inflated to physiologic pressure using balanced salt solution. Approximately 0.25ml of a mixture of triamcinolone and moxifloxacin was injected trans-sclerally into the vitreous in the inferotemporal quadrant using a 30 gauge cannula. An additional 0.25ml of a mixture of triamcinolone and moxifloxacin was injected subconjunctivally in the superior quadrant for infection and inflammation prophylaxis. Wound integrity was checked with Weck-Jessica sponges. The patient was taken from the operating room in good condition and given post-op instructions.
--- NOTE | 2024-01-27 08:00 | ANESTHESIA POST OP EVALUATION ---
Anesthesia Post Eval - Post Anesthesia Eval Vitals: Last Vital Signs Temp 36.7 C 01/27/24 07:49 Pulse 58 L 01/27/24 07:50 Resp 16 01/27/24 07:50 BP 113/70 01/27/24 07:50 Pulse Ox 98 01/27/24 07:50 O2 Flow Rate CV Function Including HR & BP: Stable Pain Control: Satisfactory Nausea & Vomiting: Negative Mental Status: Baseline Respiratory Status: Airway Patent Hydration Status: Satisfactory Anesthesia Complications: None
[2024-01-27 08:02] VITALS: O2SAT 98
[2024-01-27 08:25] VITALS: BP 110/66
== END 2024-01-27 06:44 | disposition home or self-care (01) ==
LOC: SDS 06:43
PROVIDERS: ATTEND Ophthalmology
DX: E11.36 Type 2 diabetes mellitus with diabetic cataract (principal); H25.811 Combined forms of age-related cataract, right eye; I48.91 Unspecified atrial fibrillation; I11.0 Hypertensive heart disease with heart failure; I50.9 Heart failure, unspecified; Z98.42 Cataract extraction status, left eye; Z95.0 Presence of cardiac pacemaker; Z79.01 Long term (current) use of anticoagulants; Z79.84 Long term (current) use of oral hypoglycemic drugs; Z87.891 Personal history of nicotine dependence
CPT/HCPCS: 66984; A9270; J3490; J7120